=== PATIENT | female | born 1955 | race American Indian/Alaskan Native ===

== ENCOUNTER 2017-01-12 13:27 | Emergency (ER) | payer OTHER ==
[2017-01-12] MEDS ORDERED: FLEXERIL PO ONE (16:20)
[2017-01-12] MEDS ORDERED: NORCO 5/325 PO ONE (16:20)
[2017-01-12 16:59] LABS: Hematocrit 41.8 % (30.3-42.9); Hemoglobin 14.1 gm/dl (10.1-14.3); Mean Corpuscular HGB Conc 34 % (30-34); Mean Corpuscular Hemoglobin 32 pg (28-32); Mean Corpuscular Volume 96 fl (79-97); Platelet Count 179 K/mm3 (140-440); Red Blood Count 4.36 M/mm3 (3.65-5.03); Red Cell Distribution Width 12.8 % (13.2-15.2); White Blood Count 4.3 K/mm3 (4.5-11.0)
[2017-01-12 17:01] LABS: Anion Gap 18 mmol/L; BUN/Creatinine Ratio 28; Blood Urea Nitrogen 11 mg/dL (7-17); Calcium 9.1 mg/dL (8.4-10.2); Carbon Dioxide 24 mmol/L (22-30); Chloride 100.4 mmol/L (98-107); Glucose 91 mg/dL (65-100); Potassium 3.7 mmol/L (3.6-5.0); Sodium 139 mmol/L (137-145)
--- NOTE | 2017-01-12 19:24 | Cat Scan Report ---
FINAL REPORT EXAM: CT ABD AND PELVIS W CONTRAST HISTORY: [facility] is TECHNIQUE: CT abdomen and pelvis with intravenous contrast PRIORS: None. FINDINGS: CT abdomen and pelvis There is evidence for prior gastric surgery. There are some calcifications noted within the left lobe of the liver. The spleen demonstrates normal size and attenuation. No pancreatic abnormalities seen. The kidneys demonstrate symmetric contrast enhancement. No evidence of hydronephrosis. The lower pole left kidney there is a nonobstructing 0.4 centimeter calculus The adrenal glands are unremarkable Abdominal aorta is normal in caliber. No pathologically enlarged lymph nodes are identified. No signs of free fluid or free air No evidence of small bowel dilatation. Colon is nondistended. No pericolonic inflammatory change. Urinary bladder is unremarkable. There are no acute skeletal findings identified IMPRESSION: Nonobstructing left renal calculus Evidence for prior gastric surgery No acute traumatic abnormality identified
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
[2017-01-13] MEDS ORDERED: NORCO 10/325 PO ONE (01:11)
[2017-01-13] MEDS ORDERED: FLEXERIL ONE (01:12)
[2017-01-13] MEDS ORDERED: NORCO 10/325 ONE (01:12)
[2017-01-13] MEDS ORDERED: FLEXERIL PO ONE (01:13)
[2017-01-13 05:35] VITALS: BP 129/83
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
== END 2017-01-13 05:52 | disposition home or self-care (01) ==
LOC: ED 13:27
DX: S06.9X9A Unspecified intracranial injury with loss of consciousness of unspecified duration, initial encounter (principal); K20.9 Esophagitis, unspecified; R10.9 Unspecified abdominal pain; V89.2XXA Person injured in unspecified motor-vehicle accident, traffic, initial encounter; Y93.89 Activity, other specified; Y92.89 Other specified places as the place of occurrence of the external cause; Y99.8 Other external cause status
CPT/HCPCS: 36415; 70450; 71260; 72125; 74177; 80048; 85027; 93005; 93010; 99284; Q9967